=== PATIENT | male | born 1945 | race Caucasian/White ===

== ENCOUNTER 2021-12-07 10:20 | Emergency (ER) | payer BC, MEDICARE ==
[2021-12-07] MEDS ORDERED: Gabapentin 300 MG Cap PO STA (10:58)
[2021-12-07] MEDS ORDERED: Ketorolac 30 MG/ML SDV IM ONE (11:44)
== END 2021-12-07 11:55 | disposition home or self-care (01) ==
LOC: FB.ED 10:20
DX: S00.83XA Contusion of other part of head, initial encounter (principal); Z79.82 Long term (current) use of aspirin; W00.0XXA Fall on same level due to ice and snow, initial encounter
CPT/HCPCS: 70450; 73130; 96372; 99284; A9270; J1885

== ENCOUNTER 2023-10-02 23:55 | Inpatient (IN) | payer MEDICARE ==
[2023-10-03] MEDS ORDERED: Morphine 4 MG/ML VIAL IVPUSH ONE (00:28)
[2023-10-03] MEDS ORDERED: Sodium Chloride 0.9% 10 ML Syringe FLUSH PRN (00:28)
[2023-10-03] MEDS ORDERED: Ondansetron 4 MG/2 ML SDV IVPUSH ONE (00:28)
[2023-10-03] MEDS ORDERED: Sodium Chloride 0.9% 1,000 ML IV SCH (00:30)
[2023-10-03 00:54] LABS: BASOPHILS PERCENT AUTO 0.1 % (0.3-3.8); BLOOD UREA NITROGEN,BUN 35 mg/dL (7-18); BUN/CREATININE RATIO 29.2 (9-20); CALCIUM 9.5 mg/dL (8.6-10.2); CARBON DIOXIDE,CO2 33 mmol/L (21-32); CHLORIDE,CL 94 mmol/L (100-110); CREATININE 1.2 mg/dL (0.70-1.30); EST CRCL DRUG DOSING (CG) 51.54 mL/min; ESTIMATED GFR 62 mL/min (>60); GLUCOSE RANDOM 187 mg/dL (80-116); HEMATOCRIT 40.2 % (38.3-50.1); HEMOGLOBIN 13.1 g/dL (12.9-17.7); LYMPHOCYTES ABSOLUTE AUTO 0.9 x10-3/uL (0.5-4.5); LYMPHOCYTES PERCENT AUTO 4.8 % (15.8-45.3); MEAN CORPUSCULAR HEMOGLOBIN 27.4 pg (27.0-33.3); MEAN CORPUSCULAR HGB CONC 32.5 g/dL (28.7-35.3); MEAN CORPUSCULAR VOLUME 84.4 fL (80.8-98.7); MEAN PLATELET VOLUME 7.5 fL (6.7-11.0); MONOCYTES ABSOLUTE AUTO 2.2 x10-3/uL (0.0-1.2); MONOCYTES PERCENT AUTO 12.2 % (5.5-15.2); NEUTROPHILS ABSOLUTE AUTO 14.7 x10-3/uL (1.7-6.9); NEUTROPHILS PERCENT AUTO 82.9 % (40.3-71.8); PLATELET COUNT,PLT 375 x10(3)uL (117-477); POTASSIUM,K 4.6 mmol/L (3.5-5.3); RED BLOOD CELL COUNT 4.76 x10(6)uL (3.90-5.90); RED CELL DISTRIBUTION WIDTH 16.3 % (12.4-15.0); SODIUM,NA 132 mmol/L (135-145); WHITE BLOOD CELL COUNT,WBC 17.8 x10-3/uL (3.2-10.1)
[2023-10-03 01:06] LABS: A/G RATIO 0.5; ALANINE AMINOTRANSFERASE,ALT 55 U/L (12-36); ALBUMIN 2.5 g/dL (3.2-4.6); ALKALINE PHOSPHATASE 260 IU/L (56-112); ASPARTATE AMNIOTRANSFERASE,AST 35 IU/L (5-25); BILIRUBIN TOTAL 1.2 mg/dL (0.1-1.3); PROTEIN TOTAL,TP 7.9 g/dL (6.0-8.0)
[2023-10-03] MEDS ORDERED: cefTRIAXone 2 GM Vial IVPUSH ONE (02:03)
[2023-10-03] MEDS ORDERED: Ondansetron 4 MG/2 ML SDV IV PRN (02:03)
[2023-10-03 02:06] LABS: BILIRUBIN,URINE NEGATIVE (NEGATIVE); GLUCOSE,URINE NORMAL (NORMAL); KETONES,URINE NEGATIVE (NEGATIVE); LEUKOCYTE ESTERASE,URINE NEGATIVE (NEGATIVE); NITRITE,URINE NEGATIVE (NEGATIVE); OCCULT BLOOD,URINE NEGATIVE (NEGATIVE); PH,URINE 6.5 (5.0-6.5); PROTEIN,URINE NEGATIVE (NEGATIVE); UROBILINOGEN,URINE 1 mg/dL (NEGATIVE)
[2023-10-03 02:11] LABS: APPEARANCE,URINE CLEAR (CLEAR); BACTERIA,URINE RARE (NS); COLOR,URINE YELLOW (YELLOW); RBC,URINE 0-5 (0-5); SQUAMOUS EPITHELIAL CELLS,UR OCCASIONAL (NS,R,O); WBC,URINE 0-5 (0-5)
[2023-10-03 02:14] LABS: INFLUENZA A NAA NEGATIVE (NEGATIVE); INFLUENZA B NAA NEGATIVE (NEGATIVE); RESPIRATORY SYNCYTIAL VIR NAA NEGATIVE (NEGATIVE)
[2023-10-03] MEDS ORDERED: Enoxaparin 40 MG/0.4 ML Syringe SUBCUT SCH ×2 (02:15→09:00)
[2023-10-03] MEDS ORDERED: cefTRIAXone 2 GM Vial ONE (02:18)
[2023-10-03 02:19] LABS: CORONAVIRUS COVID-19 NAA NEGATIVE (NEGATIVE)
[2023-10-03] MEDS: Sodium Chloride 0.9% 1,000 ML IV SCH ×3 (02:26→20:08)
[2023-10-03 06:46] LABS: BASOPHILS PERCENT AUTO 0.2 % (0.3-3.8); HEMATOCRIT 37.1 % (38.3-50.1); HEMOGLOBIN 12.1 g/dL (12.9-17.7); LYMPHOCYTES ABSOLUTE AUTO 0.9 x10-3/uL (0.5-4.5); LYMPHOCYTES PERCENT AUTO 5.2 % (15.8-45.3); MEAN CORPUSCULAR HEMOGLOBIN 27.5 pg (27.0-33.3); MEAN CORPUSCULAR HGB CONC 32.6 g/dL (28.7-35.3); MEAN CORPUSCULAR VOLUME 84.5 fL (80.8-98.7); MEAN PLATELET VOLUME 7.2 fL (6.7-11.0); MONOCYTES ABSOLUTE AUTO 2.1 x10-3/uL (0.0-1.2); MONOCYTES PERCENT AUTO 12.3 % (5.5-15.2); NEUTROPHILS ABSOLUTE AUTO 14.4 x10-3/uL (1.7-6.9); NEUTROPHILS PERCENT AUTO 82.3 % (40.3-71.8); PLATELET COUNT,PLT 366 x10(3)uL (117-477); RED BLOOD CELL COUNT 4.39 x10(6)uL (3.90-5.90); RED CELL DISTRIBUTION WIDTH 16.3 % (12.4-15.0); WHITE BLOOD CELL COUNT,WBC 17.5 x10-3/uL (3.2-10.1)
[2023-10-03 06:50] LABS: BLOOD UREA NITROGEN,BUN 31 mg/dL (7-18); CARBON DIOXIDE,CO2 32 mmol/L (21-32); CHLORIDE,CL 97 mmol/L (100-110); EST CRCL DRUG DOSING (CG) 61.85 mL/min; ESTIMATED GFR 77 mL/min (>60); GLUCOSE RANDOM 122 mg/dL (80-116); SODIUM,NA 133 mmol/L (135-145)
[2023-10-03] MEDS: Morphine 2 MG/ML SYRINGE IVPUSH PRN (08:35)
[2023-10-03] MEDS ORDERED: Sodium Chloride 0.9% Inhalation Soln 3 ML Neb INH PRN (09:08)
[2023-10-03] MEDS ORDERED: ZALEPLON 10 MG GTUBE PRN (09:08)
[2023-10-03] MEDS ORDERED: Albuterol/Ipratropium 3.0-0.5 MG/3 ML Neb Soln NEB PRN (09:08)
[2023-10-03] MEDS ORDERED: Triamcinolone Acetonide 0.1% Crm 15 GM Tube TOP PRN (09:08)
[2023-10-03] MEDS ORDERED: hydrOXYzine HCl 25 MG Tab GTUBE PRN (09:08)
[2023-10-03] MEDS ORDERED: Multivitamins with Minerals and Iron Liquid ML 240 ML Bottle GTUBE SCH (09:30)
[2023-10-03] MEDS: Diltiazem IR 60 MG Tab GTUBE SCH ×3 (10:42→21:14)
[2023-10-03] MEDS: Apixaban 5 MG Tab GTUBE SCH ×2 (10:42→17:36)
[2023-10-03] MEDS: Multivitamins with Minerals and Iron Liquid ML 240 ML Bottle GTUBE SCH (10:43)
[2023-10-03] MEDS: Calcium Carbonate 500 MG Tab.Chew GTUBE SCH ×2 (11:46→17:36)
[2023-10-03] MEDS: Docusate Sodium Liquid 50 MG/5 ML ML 473 ML Bottle GTUBE SCH (11:46)
[2023-10-03] MEDS: Acetaminophen 500 MG Tab GTUBE PRN ×2 (11:46→21:17)
[2023-10-03] MEDS: Cyclobenzaprine 10 MG Tab GTUBE PRN ×2 (11:46→21:12)
[2023-10-03] MEDS ORDERED: VANCOmycin 1.5 GM/300 ML 1.5 GM in Premix Bag 1 BAG IV ONE (17:00)
[2023-10-03] MEDS ORDERED: Calcium Carbonate 500 MG Tablet GTUBE SCH (18:00)
[2023-10-03] MEDS ORDERED: Mirtazapine 30 MG Tab GTUBE SCH (21:00)
[2023-10-03] MEDS ORDERED: Zolpidem 5 MG Tab GTUBE SCH (21:00)
[2023-10-03] MEDS ORDERED: Latanoprost 0.005% Ophth Soln 2.5 ML Bottle EYEBOTH SCH (21:00)
[2023-10-03] MEDS: Piperacillin/Tazobactam 3.375 GM in Sodium Chloride 0.9% 50 ML IV SCH (21:06)
[2023-10-03] MEDS: Saccharomyces Boulardii (Probiotic) 250 MG Cap PO SCH (21:14)
[2023-10-04] MEDS: Piperacillin/Tazobactam 3.375 GM in Sodium Chloride 0.9% 50 ML IV SCH ×3 (02:00→14:41)
[2023-10-04] MEDS: Diltiazem IR 60 MG Tab GTUBE SCH ×3 (03:30→16:05)
[2023-10-04] MEDS: Sodium Chloride 0.9% 1,000 ML IV SCH (05:17)
[2023-10-04] MEDS: VANCOmycin 1 GM/200 ML 1 GM in Premix Bag 1 BAG IV SCH ×2 (05:18→16:59)
[2023-10-04 06:55] LABS: HEMATOCRIT 37.5 % (38.3-50.1); HEMOGLOBIN 12.3 g/dL (12.9-17.7); MEAN CORPUSCULAR HEMOGLOBIN 27.8 pg (27.0-33.3); MEAN CORPUSCULAR HGB CONC 32.9 g/dL (28.7-35.3); MEAN CORPUSCULAR VOLUME 84.7 fL (80.8-98.7); MEAN PLATELET VOLUME 7.3 fL (6.7-11.0); PLATELET COUNT,PLT 414 x10(3)uL (117-477); RED BLOOD CELL COUNT 4.42 x10(6)uL (3.90-5.90); RED CELL DISTRIBUTION WIDTH 16.6 % (12.4-15.0)
[2023-10-04 07:00] LABS: A/G RATIO 0.4; ALANINE AMINOTRANSFERASE,ALT 52 U/L (12-36); ALBUMIN 2.2 g/dL (3.2-4.6); ALKALINE PHOSPHATASE 253 IU/L (56-112); ASPARTATE AMNIOTRANSFERASE,AST 28 IU/L (5-25); BILIRUBIN TOTAL 1.3 mg/dL (0.1-1.3); BLOOD UREA NITROGEN,BUN 26 mg/dL (7-18); CALCIUM 9.1 mg/dL (8.6-10.2); CARBON DIOXIDE,CO2 32 mmol/L (21-32); CHLORIDE,CL 101 mmol/L (100-110); EST CRCL DRUG DOSING (CG) 61.85 mL/min; ESTIMATED GFR 77 mL/min (>60); GLUCOSE RANDOM 141 mg/dL (80-116); POTASSIUM,K 4.4 mmol/L (3.5-5.3); PROTEIN TOTAL,TP 7.3 g/dL (6.0-8.0); SODIUM,NA 136 mmol/L (135-145)
[2023-10-04 07:32] LABS: ANISOCYTOSIS FEW; LYMPHOCYTES PERCENT MAN 5 % (13-37); MONOCYTES PERCENT MAN 9 % (4-12); SEG NEUTROPHILS PERCENT MAN 86 % (46-82)
[2023-10-04] MEDS ORDERED: cefTRIAXone 1 GM Vial IVPUSH SCH (09:00)
[2023-10-04] MEDS: Calcium Carbonate 500 MG Tab.Chew GTUBE SCH ×2 (09:18→18:24)
[2023-10-04] MEDS: Apixaban 5 MG Tab GTUBE SCH ×2 (09:18→18:23)
[2023-10-04] MEDS: Multivitamins with Minerals and Iron Liquid ML 240 ML Bottle GTUBE SCH (09:20)
[2023-10-04] MEDS: Saccharomyces Boulardii (Probiotic) 250 MG Cap PO SCH (09:24)
[2023-10-04] MEDS ORDERED: traMADol 50 MG Tab GTUBE PRN (09:47)
[2023-10-04] MEDS: Docusate Sodium Liquid 50 MG/5 ML ML 473 ML Bottle GTUBE SCH (12:11)
[2023-10-04] MEDS ORDERED: Potassium Chloride 20 MEQ Tab.ER GTUBE SCH (18:00)
[2023-10-04] MEDS: Cyclobenzaprine 10 MG Tab GTUBE PRN (18:41)
[2023-10-04] MEDS: Morphine 2 MG/ML SYRINGE IVPUSH PRN (18:42)
== END 2023-10-04 19:00 | DRG 540 ==
LOC: FB.ED 23:55 → FB.MS 10-03 02:03 → OBSVTOIN 10-04 10:04
PROVIDERS: ADMIT Family Medicine; ATTEND Family Medicine
DX: M54.41 Lumbago with sciatica, right side (principal); M46.26 Osteomyelitis of vertebra, lumbar region; R78.81 Bacteremia; Z20.822 Contact with and (suspected) exposure to COVID-19; M46.46 Discitis, unspecified, lumbar region; M48.061 Spinal stenosis, lumbar region without neurogenic claudication; E86.0 Dehydration; M25.511 Pain in right shoulder; I50.9 Heart failure, unspecified; I48.0 Paroxysmal atrial fibrillation; I11.0 Hypertensive heart disease with heart failure; F39 Unspecified mood [affective] disorder; R68.89 Other general symptoms and signs; R00.0 Tachycardia, unspecified; I48.91 Unspecified atrial fibrillation; F41.9 Anxiety disorder, unspecified; Z98.890 Other specified postprocedural states; Z98.1 Arthrodesis status; Z79.899 Other long term (current) drug therapy; Z79.01 Long term (current) use of anticoagulants; Z93.0 Tracheostomy status; Z11.52 Encounter for screening for COVID-19
CPT/HCPCS: 0241U; 36415; 71045; 71250; 72148; 80048; 80053; 81001; 83605; 85025; 86140; 87040; 87077; 87186; 96361; 96365; 96366; 96367; 96374; 96375; 96376; 97161-GP; 97530-GP; 99223; 99239; 99285; 99285-25; A9270-GY; G0378; J0696; J2270; J2405; J2543; J3370; J3490; J7030

== ENCOUNTER 2023-10-23 17:25 | Emergency (ER) | payer MEDICARE | END 2023-10-23 21:30 | disposition home or self-care (01) | LOC: FB.ED 17:25 | DX: S09.90XA Unspecified injury of head, initial encounter (principal); Z79.2 Long term (current) use of antibiotics; Z79.899 Other long term (current) drug therapy; Z79.891 Long term (current) use of opiate analgesic; W01.198A Fall on same level from slipping, tripping and stumbling with subsequent striking against other object, initial encounter | CPT/HCPCS: 70450; 99283 ==

== ENCOUNTER 2025-04-25 02:33 | Emergency (ER) | payer BC, MEDICARE | END 2025-04-25 04:05 | disposition home or self-care (01) | LOC: FB.ED 02:33 | DX: S00.03XA Contusion of scalp, initial encounter (principal); I48.91 Unspecified atrial fibrillation; Z79.01 Long term (current) use of anticoagulants; Z79.51 Long term (current) use of inhaled steroids; Z79.899 Other long term (current) drug therapy; W07.XXXA Fall from chair, initial encounter | CPT/HCPCS: 70450; 99283 ==

== ENCOUNTER 2025-06-12 08:36 | Emergency (ER) | payer MEDICARE | END 2025-06-12 10:15 | disposition home or self-care (01) | LOC: FB.ED 08:36 | DX: S09.90XA Unspecified injury of head, initial encounter (principal); Z79.2 Long term (current) use of antibiotics; Z79.899 Other long term (current) drug therapy; W01.198A Fall on same level from slipping, tripping and stumbling with subsequent striking against other object, initial encounter; Y93.01 Activity, walking, marching and hiking | CPT/HCPCS: 70450; 99283 ==

== ENCOUNTER 2025-07-08 15:56 | Emergency (ER) | payer MEDICARE ==
[2025-07-08] MEDS ORDERED: Nitrofurantoin Monohydrate/Macrocrystalline 100 MG Cap PO ONE (15:57)
[2025-07-08] MEDS ORDERED: Sodium Chloride 0.9% 10 ML Syringe FLUSH PRN (16:17)
[2025-07-08 16:26] LABS: BASOPHILS ABSOLUTE AUTO 0.0 x10-3/uL (0.0-0.3); BASOPHILS PERCENT AUTO 0.2 % (0.3-3.8); EOSINOPHILS ABSOLUTE AUTO 0.1 x10-3/uL (0.0-0.6); EOSINOPHILS PERCENT AUTO 0.6 % (0.1-6.8); LYMPHOCYTES ABSOLUTE AUTO 1.1 x10-3/uL (0.5-4.5); LYMPHOCYTES PERCENT AUTO 11.7 % (15.8-45.3); MEAN PLATELET VOLUME 8.4 fL (6.7-11.0); MONOCYTES ABSOLUTE AUTO 1.4 x10-3/uL (0.0-1.2); MONOCYTES PERCENT AUTO 15.3 % (5.5-15.2); NEUTROPHILS ABSOLUTE AUTO 6.7 x10-3/uL (1.7-6.9); NEUTROPHILS PERCENT AUTO 72.2 % (40.3-71.8); PLATELET COUNT,PLT 297 x10(3)uL (117-477); RED CELL DISTRIBUTION WIDTH 16.7 % (12.4-15.0); WHITE BLOOD CELL COUNT,WBC 9.3 x10-3/uL (3.2-10.1)
[2025-07-08 16:29] LABS: BLOOD UREA NITROGEN,BUN 29 mg/dL (7-18); CARBON DIOXIDE,CO2 29 mmol/L (21-32); CHLORIDE,CL 98 mmol/L (100-110); CREATININE 1.3 mg/dL (0.70-1.30); ESTIMATED GFR 55 mL/min (>60); GLUCOSE RANDOM 111 mg/dL (80-116); POTASSIUM,K 4.3 mmol/L (3.5-5.3); SODIUM,NA 133 mmol/L (135-145)
[2025-07-08 16:40] LABS: A/G RATIO 0.6; ALANINE AMINOTRANSFERASE,ALT 19 U/L (12-36); ASPARTATE AMNIOTRANSFERASE,AST 48 IU/L (5-25); BILIRUBIN TOTAL 1.5 mg/dL (0.1-1.3); PROTEIN TOTAL,TP 7.4 g/dL (6.0-8.0)
[2025-07-08 16:42] LABS: PRO B-TYPE NATRIUR PEPT,BNPPRO 987.0 pg/mL (<=450); RED BLOOD CELL COUNT 4.53 x10(6)uL (3.90-5.90)
[2025-07-08 17:16] LABS: INFLUENZA A NAA NEGATIVE (NEGATIVE); INFLUENZA B NAA NEGATIVE (NEGATIVE); RESPIRATORY SYNCYTIAL VIR NAA NEGATIVE (NEGATIVE)
[2025-07-08 17:17] LABS: GLUCOSE,URINE NORMAL (NORMAL); OCCULT BLOOD,URINE NEGATIVE (NEGATIVE)
[2025-07-08 17:20] LABS: APPEARANCE,URINE CLEAR (CLEAR); SQUAMOUS EPITHELIAL CELLS,UR FEW (NS,R,O)
[2025-07-08 17:21] LABS: CORONAVIRUS COVID-19 NAA NEGATIVE (NEGATIVE)
== END 2025-07-08 18:20 | disposition home or self-care (01) ==
LOC: FB.ED 15:56
DX: J41.8 Mixed simple and mucopurulent chronic bronchitis (principal); I48.0 Paroxysmal atrial fibrillation; N30.00 Acute cystitis without hematuria; R68.89 Other general symptoms and signs; Z79.01 Long term (current) use of anticoagulants; Z79.899 Other long term (current) drug therapy
CPT/HCPCS: 36415; 71045; 80053; 81001; 83605; 83880; 84484; 85025; 86140; 87086; 87088; 87186; 87637; 93005; 93010; 96360; 99284; 99285; A9270; J7030

== ENCOUNTER 2025-08-13 19:44 | Inpatient (IN) | payer MEDICARE ==
[2025-08-13 20:19] LABS: MEAN PLATELET VOLUME 7.8 fL (6.7-11.0); PLATELET COUNT,PLT 270 x10(3)uL (117-477); RED BLOOD CELL COUNT 4.79 x10(6)uL (3.90-5.90); RED CELL DISTRIBUTION WIDTH 18.4 % (12.4-15.0); WHITE BLOOD CELL COUNT,WBC 14.8 x10-3/uL (3.2-10.1)
[2025-08-13 20:37] LABS: BLOOD UREA NITROGEN,BUN 26 mg/dL (7-18); CARBON DIOXIDE,CO2 33 mmol/L (21-32); CHLORIDE,CL 100 mmol/L (100-110); CREATININE 1.3 mg/dL (0.70-1.30); EST CRCL DRUG DOSING (CG) 46.01 mL/min; ESTIMATED GFR 55 mL/min (>60); GLUCOSE RANDOM 90 mg/dL (80-116); POTASSIUM,K 4.4 mmol/L (3.5-5.3); SODIUM,NA 144 mmol/L (135-145)
[2025-08-13 20:40] LABS: BAND PERCENT MAN 4 % (0-6); LYMPHOCYTES PERCENT MAN 11 % (13-37); MONOCYTES PERCENT MAN 6 % (4-12); SEG NEUTROPHILS PERCENT MAN 79 % (46-82)
[2025-08-13 20:43] LABS: A/G RATIO 0.6; ALANINE AMINOTRANSFERASE,ALT 14 U/L (12-36); ASPARTATE AMNIOTRANSFERASE,AST 30 IU/L (5-25); BILIRUBIN TOTAL 2.0 mg/dL (0.1-1.3); PROTEIN TOTAL,TP 8.1 g/dL (6.0-8.0)
[2025-08-13 20:57] LABS: PRO B-TYPE NATRIUR PEPT,BNPPRO 1439.0 pg/mL (<=450)
[2025-08-13 21:33] LABS: BASE EXCESS VENOUS,POC 0 mmol/L (-2 - 3+); PCO2 VENOUS,POC 60 mmHg (41-51); PH VENOUS,POC 7.29 pH Units (7.32-7.43)
[2025-08-13 21:57] LABS: LACTIC ACID 2.0 mmol/L (0.4-2.0)
[2025-08-13 22:04] LABS: INFLUENZA A NAA NEGATIVE (NEGATIVE); INFLUENZA B NAA NEGATIVE (NEGATIVE); RESPIRATORY SYNCYTIAL VIR NAA NEGATIVE (NEGATIVE)
[2025-08-13 22:05] LABS: CORONAVIRUS COVID-19 NAA NEGATIVE (NEGATIVE)
[2025-08-13] MEDS ORDERED: Ondansetron 4 MG/2 ML SDV IV PRN (22:12)
[2025-08-13] MEDS ORDERED: Sennosides/Docusate Sodium 50-8.6 MG Tab PO PRN (22:12)
[2025-08-13] MEDS ORDERED: Naloxone 0.4 MG/ML SDV IVPUSH PRN (22:23)
[2025-08-13] MEDS ORDERED: Triamcinolone Acetonide 0.1% Crm 15 GM Tube TOP PRN (22:25)
[2025-08-13] MEDS ORDERED: ZALEPLON 10 MG GTUBE PRN (22:25)
[2025-08-13] MEDS ORDERED: Albuterol 0.083% 2.5 MG/3 ML Neb Soln NEB PRN (22:30)
[2025-08-14] MEDS: Sodium Chloride 0.9% 10 ML Syringe FLUSH PRN (05:22)
[2025-08-14 06:38] LABS: BASOPHILS ABSOLUTE AUTO 0.0 x10-3/uL (0.0-0.3); BASOPHILS PERCENT AUTO 0.3 % (0.3-3.8); EOSINOPHILS ABSOLUTE AUTO 0.0 x10-3/uL (0.0-0.6); EOSINOPHILS PERCENT AUTO 0.2 % (0.1-6.8); LYMPHOCYTES ABSOLUTE AUTO 0.7 x10-3/uL (0.5-4.5); LYMPHOCYTES PERCENT AUTO 7.2 % (15.8-45.3); MEAN PLATELET VOLUME 7.3 fL (6.7-11.0); MONOCYTES ABSOLUTE AUTO 0.9 x10-3/uL (0.0-1.2); MONOCYTES PERCENT AUTO 8.8 % (5.5-15.2); NEUTROPHILS ABSOLUTE AUTO 8.5 x10-3/uL (1.7-6.9); NEUTROPHILS PERCENT AUTO 83.5 % (40.3-71.8); PLATELET COUNT,PLT 232 x10(3)uL (117-477); RED CELL DISTRIBUTION WIDTH 18.4 % (12.4-15.0); WHITE BLOOD CELL COUNT,WBC 10.1 x10-3/uL (3.2-10.1)
[2025-08-14 06:46] LABS: RED BLOOD CELL COUNT 4.24 x10(6)uL (3.90-5.90)
[2025-08-14 06:49] LABS: A/G RATIO 0.6; ALANINE AMINOTRANSFERASE,ALT 12 U/L (12-36); ASPARTATE AMNIOTRANSFERASE,AST 25 IU/L (5-25); BILIRUBIN TOTAL 1.0 mg/dL (0.1-1.3); BLOOD UREA NITROGEN,BUN 29 mg/dL (7-18); CARBON DIOXIDE,CO2 35 mmol/L (21-32); CHLORIDE,CL 105 mmol/L (100-110); CREATININE 1.1 mg/dL (0.70-1.30); EST CRCL DRUG DOSING (CG) 54.38 mL/min; ESTIMATED GFR 67 mL/min (>60); GLUCOSE RANDOM 79 mg/dL (80-116); POTASSIUM,K 4.6 mmol/L (3.5-5.3); PROTEIN TOTAL,TP 6.8 g/dL (6.0-8.0); SODIUM,NA 145 mmol/L (135-145)
[2025-08-14] MEDS ORDERED: CALCIUM CARBONATE GTUBE SCH (08:00)
[2025-08-14] MEDS ORDERED: VITAMIN D3 GTUBE SCH (08:00)
[2025-08-14] MEDS ORDERED: [UNRECOGNIZED DRUG - OTHER] GTUBE SCH (08:00)
[2025-08-14] MEDS ORDERED: DIGOXIN 0.125 MG/2.5 ML GTUBE SCH (09:00)
[2025-08-14] MEDS: Furosemide 40 MG/4 ML VIAL IVPUSH SCH (09:08)
[2025-08-14] MEDS: Scopalamine 1mg/3day Transdermal Patch TOP ONE (10:43)
[2025-08-14] MEDS: Diltiazem IR 60 MG Tab PO SCH (10:47)
[2025-08-14] MEDS ORDERED: Hyoscyamine 0.125 MG Tab.SL SL PRN (14:54)
== END 2025-08-14 15:30 | disposition expired | DRG 193 ==
LOC: FB.ED 19:44 → FB.MS 22:12
PROVIDERS: ADMIT Emergency Medicine; ATTEND Family Medicine
DX: J41.8 Mixed simple and mucopurulent chronic bronchitis (principal); J18.9 Pneumonia, unspecified organism; J44.0 Chronic obstructive pulmonary disease with (acute) lower respiratory infection; C34.90 Malignant neoplasm of unspecified part of unspecified bronchus or lung; C79.51 Secondary malignant neoplasm of bone; C79.31 Secondary malignant neoplasm of brain; C78.7 Secondary malignant neoplasm of liver and intrahepatic bile duct; J96.01 Acute respiratory failure with hypoxia; Z66 Do not resuscitate; G47.33 Obstructive sleep apnea (adult) (pediatric); I11.0 Hypertensive heart disease with heart failure; H54.7 Unspecified visual loss; I50.9 Heart failure, unspecified; M19.90 Unspecified osteoarthritis, unspecified site; M54.9 Dorsalgia, unspecified; I48.0 Paroxysmal atrial fibrillation; G89.29 Other chronic pain; F41.9 Anxiety disorder, unspecified; F32.A Depression, unspecified; Z98.890 Other specified postprocedural states; Z87.891 Personal history of nicotine dependence; Z79.899 Other long term (current) drug therapy; Z79.01 Long term (current) use of anticoagulants
CPT/HCPCS: 36415; 70450; 71045; 72128; 72131; 80053; 80162; 83605; 83880; 84484; 85025; 87040 ×2; 87637; 93005; 96374; 96375; 99285; J0456; J0696; J2270; J7050; 93010; 94150; A9270-GY; J1938